=== PATIENT | female | born 1965 | race American Indian/Alaskan Native ===

== ENCOUNTER → 2018-10-09 | Outpatient (CLI) | payer OTHER, MEDICAID | LOC: BRMIMAGING 13:54 | PROVIDERS: ATTEND Internal Medicine | DX: M16.11 Unilateral primary osteoarthritis, right hip (principal); M53.3 Sacrococcygeal disorders, not elsewhere classified; M06.9 Rheumatoid arthritis, unspecified; Z79.899 Other long term (current) drug therapy | CPT/HCPCS: 73521-PO ==